=== PATIENT | male | born 1995 | race Two or more races ===

== ENCOUNTER 2022-04-27 11:42 | Emergency (ER) | payer OTHER ==
[~2022-04-27] VITALS: Ht 190.5 cm; Wt 76.6 kg
[2022-04-27 12:17] LABS: BASO # 0.1 10^3/uL (0.0-0.2); BASO % 0.7 % (0.0-1.0); EOS # 0.1 10^3/uL (0.0-0.5); EOS % 0.7 % (0.0-3.0); HEMATOCRIT 47.5 % (42.0-52.0); HEMOGLOBIN 16.3 g/dl (13.5-17.5); LYMPH # 2.4 10^3/uL (1.5-5.0); LYMPH % 20.7 % (24.0-44.0); MEAN CORPUSCULAR HGB CONC 34.3 g/dl (32.0-36.5); MEAN CORPUSCULAR VOLUME 87.5 fl (80.0-96.0); MONO # 1.2 10^3/uL (0.0-0.8); MONO % 9.9 % (2.0-8.0); NEUTROPHILS # 7.9 10^3/uL (1.5-8.5); NEUTROPHILS % 67.7 % (36.0-66.0); PLATELET COUNT, AUTOMATED 279 10^3/uL (150-450); RED BLOOD COUNT 5.43 10^6/uL (4.30-6.10); WHITE BLOOD COUNT 11.7 10^3/uL (4.0-10.0)
[2022-04-27 12:39] LABS: ALBUMIN 4.3 GM/DL (3.2-5.2); ALT/SGPT 23 U/L (12-78); BILIRUBIN,TOTAL 2.1 MG/DL (0.2-1.0); BLOOD UREA NITROGEN 16 MG/DL (7-18); CALCIUM LEVEL 8.9 MG/DL (8.5-10.1); CARBON DIOXIDE LEVEL 28 MEQ/L (21-32); CHLORIDE LEVEL 106 MEQ/L (98-107); CREATININE FOR GFR 0.93 MG/DL (0.70-1.30); GLOMERULAR FILTRATION RATE > 60.0 (>60); GLUCOSE, FASTING 76 MG/DL (70-100); POTASSIUM SERUM 3.8 MEQ/L (3.5-5.1); SODIUM LEVEL 138 MEQ/L (136-145); TOTAL PROTEIN 7.4 GM/DL (6.4-8.2)
[2022-04-27 12:44] LABS: ERYTHROCYTE SEDIMENTATION RATE 1 mm/hr (0-15)
[2022-04-27] MEDS ORDERED: CLEO150C PO (12:59)
[2022-04-27] MEDS ORDERED: CLEO300C2 PO (12:59)
[2022-04-27] MEDS ORDERED: CLINDAMYCIN 150MG CAPSULE PO ONE (13:05)
[2022-04-27 13:11] VITALS: BP 134/92
== END 2022-04-27 13:28 | disposition home or self-care (01) ==
LOC: M ED 11:42
DX: L03.211 Cellulitis of face (principal); Z91.040 Latex allergy status; Z88.2 Allergy status to sulfonamides

== ENCOUNTER → 2024-11-03 | Outpatient (REF) | payer BC ==
[~2024-11-03] MED LIST: CLEO150C PO; CLEO300C2 PO
[2024-11-03 13:09] LABS: ALBUMIN 4.1 G/DL (3.2-5.2); ALKALINE PHOSPHATASE 59 U/L (40-129); ALT/SGPT 30 U/L (7.0-40); AST/SGOT 21 U/L (<34); BILIRUBIN,TOTAL 1.6 MG/DL (0.3-1.2); BLOOD UREA NITROGEN 14 MG/DL (9-23); CALCIUM LEVEL 9.6 MG/DL (8.5-10.1); CARBON DIOXIDE LEVEL 30 MMOL/L (20-31); CHLORIDE LEVEL 107 MMOL/L (98-107); CHOLESTEROL LEVEL 207 MG/DL (<200); CHOLESTEROL RISK RATIO 3.95 (<5); CREATININE FOR GFR 0.92 MG/DL (0.70-1.30); GLOMERULAR FILTRATION RATE > 60.0 (>60); GLUCOSE, FASTING 93 MG/DL (60-100); HDL CHOLESTEROL 52.4 MG/DL (>40); LDL CHOLESTEROL 133.8 MG/DL (<100); NON-HDL-C 154.6 MG/DL; POTASSIUM SERUM 4.4 MMOL/L (3.5-5.1); SODIUM LEVEL 142 MMOL/L (136-145); TRIGLYCERIDES LEVEL 104 MG/DL (<150)
[2024-11-03 13:11] LABS: FREE T4 1.11 NG/DL (0.89-1.76); THYROID STIMULATING HORMONE 2.341 uIU/ML (0.55-4.78)
== END ==
LOC: M SFHCCLAY 07:14
PROVIDERS: ATTEND Physician Assistant
DX: Z00.00 Encounter for general adult medical examination without abnormal findings (principal)

== ENCOUNTER → 2025-06-07 | Outpatient (REF) | payer BC | LOC: M SMT 14:58 | PROVIDERS: ATTEND Urology | DX: L72.0 Epidermal cyst (principal) ==

== ENCOUNTER 2025-06-29 09:01 | Emergency (ER) | payer BC, OTHER, SELFPAY ==
[~2025-06-29] VITALS: Ht 193 cm; Wt 82.7 kg
[2025-06-29] MEDS ORDERED: HOME MED LIST COMPLETE! XX SCH (09:30)
[2025-06-29] MEDS: KETOROLAC 30 MG/ML 1 ML VIAL IV ONE (10:17)
[2025-06-29] MEDS: NS (Normal Saline) 0.9% 1,000 ML IV ONE (10:17)
[2025-06-29] MEDS: ACETAMINOPHEN *IV* 1,000 MG in IV 1 EA IV ONE (11:30)
[2025-06-29 12:00] VITALS: BP 112/68; O2SAT 97
[2025-06-29 12:14] VITALS: TEMP 97
== END 2025-06-29 12:19 | disposition home or self-care (01) ==
LOC: M ED 09:01
DX: R51.9 Headache, unspecified (principal); Z88.2 Allergy status to sulfonamides; Z91.040 Latex allergy status
CPT/HCPCS: 70450; 96361; 96374; 96375; 99284; J0131; J1885; J2765